=== PATIENT | male | born 1960 | race Caucasian/White ===

== ENCOUNTER 2018-03-12 23:16 | Inpatient (IN) | payer BC ==
[2018-03-13 00:22] LABS: ABS Basophils 0 10^3/ul (0-0.2); ABS Eosinophils 0.1 10^3/ul (0-0.6); ABS Lymphocytes 0.9 10^3/ul (1.0-4.8); ABS Monocytes 0.5 10^3/ul (0-0.8); ABS Neutrophils 7.8 10^3/ul (1.5-7.7); ABS Nucleated RBC 0 10^3/ul; Eosinophil % 1.4 % (0-6); Hematocrit 42 % (42-52); Hemoglobin 14.4 g/dl (14.0-18.0); Lymphocyte % 9.4 % (25-47); Mean Corpuscular HGB Conc 35 g/dl (31-36); Mean Corpuscular Hemoglobin 31 pg (27-31); Mean Corpuscular Volume 89 fL (80-94); Nucleated Red Blood Cells % 0; Platelet Count 191 10^3/ul (150-450); Red Blood Count 4.69 10^6/ul (4.00-5.40); Red Cell Distribution Width 13 % (10.5-15); White Blood Count 9.3 10^3/ul (3.5-10.8)
[2018-03-13 00:35] LABS: EGFR Non-African American 99.6 (>60)
[2018-03-13] MEDS ORDERED: Dexamethasone IV* 4 MG/ML 5 ML VIAL (20 MG) IVPB ONE (00:36)
[2018-03-13] MEDS ORDERED: Ondansetron INJ* 2 MG/ML VIAL IV PRN ×2 (01:22→03:23)
[2018-03-13] MEDS ORDERED: Morphine VIAL* 10 MG/ML 1 ML VIAL IV ONE (01:22)
[2018-03-13] MEDS ORDERED: Ondansetron INJ* 2 MG/ML VIAL ONE (01:41)
[2018-03-13] MEDS ORDERED: levETIRAcetam IV* 500 MG in NS 0.9% 100 ML* 100 ML IVPB ONE (01:53)
--- NOTE | 2018-03-13 01:55 | ED ---
Headache - HPI Summary HPI Summary: Patient complains of cognitive decline including difficulty focusing and decreased memory 1 week with constant diffused generalized headache, nausea 2 days. No relief with Tylenol or aspirin. No prior history of headache. Denies focal deficits, vision change, V/D, trauma neck stiffness, fever, cough, sore throat, CP, SOB, abdominal pain, change in urine or BM. Medical history is none. No anti-coag. - History Of Current Complaint Chief Complaint: EDHeadache Stated Complaint: HEADACHE Time Seen by Provider: 03/12/18 23:40 Hx Obtained From: Patient, Family/Laborer [facility] Onset/Duration: Gradual Onset Initially Headache Was: Severe Currently Pain Is: Severe Timing: Constant Character: Sharp Location of Headache: Diffuse Aggravating Factor: Bright Lights Allevating Factors: Nothing Associated Signs And Symptoms: Negative - Risk Factors SAH Risk Factors: Negative Meningitis Risk Factors: Negative SDH Risk Factors: Male - Allergies/Home Medications Allergies/Adverse Reactions: Allergies Allergy/AdvReac Type Severity Reaction Status Date / Time No Known Allergies Allergy Verified 03/12/18 23:27 PMH/Surg Hx/FS Hx/Imm Hx Endocrine/Hematology History: Denies: Hx Anticoagulant Therapy, Hx Diabetes Cardiovascular History: Denies: Hx Cardiac Arrest, Hx Hypertension History: Denies: Hx Dialysis, Hx Kidney Stones Neurological History: Denies: Hx CVA Infectious Disease History: No Infectious Disease History: Denies: Traveled Outside the [place] in Last 30 Days - Family History Known Family History: Positive: Hypertension, Other - HLD - Social History Alcohol Use: None Substance Use Type: Reports: None Smoking Status (MU): Unknown if Ever Smoked Review of Systems Constitutional: Negative Eyes: Negative ENT: Negative Cardiovascular: Negative Respiratory: Negative Gastrointestinal: Negative Genitourinary: Negative Musculoskeletal: Negative Skin: Negative Positive: Headache Psychological: Normal All Other Systems Reviewed And Are Negative: Yes Physical Exam - Summary Physical Exam Summary: Neuro exam normal. Patient alert and oriented responding coherently and appropriately. Holding his head in his arms Triage Information Reviewed: Yes Vital Signs On Initial Exam: Initial Vitals Temp Pulse Resp BP Pulse Ox 97.4 F 70 16 154/87 99 03/12/18 23:25 03/12/18 23:25 03/12/18 23:25 03/12/18 23:25 03/12/18 23:25 Vital Signs Reviewed: Yes Appearance: Positive: Well-Appearing Skin: Positive: Warm Head/Face: Positive: Normal Head/Face Inspection Eyes: Positive: Normal Neck: Positive: Supple Respiratory/Lung Sounds: Positive: Clear to Auscultation Cardiovascular: Positive: Normal Abdomen Description: Positive: Nontender Musculoskeletal: Positive: Normal Neurological: Positive: Normal Psychiatric: Positive: Normal AVPU Assessment: Alert - Radha Coma Scale Best Eye Response: 4 - Spontaneous Best Motor Response: 6 - Obeys Commands Best Verbal Response: 5 - Oriented Coma Scale Total: 15 Diagnostics - Vital Signs Vital Signs Temp Pulse Resp BP Pulse Ox 03/13/18 01:43 16 03/12/18 23:25 97.4 F 70 16 154/87 99 - Laboratory Lab Results: Lab Results 03/13/18 03/13/18 Range/Units 00:13 00:13 WBC 9.3 (3.5-10.8) 10^3/ul RBC 4.69 (4.00-5.40) 10^6/ul Hgb 14.4 (14.0-18.0) g/dl Hct 42 (42-52) % MCV 89 (80-94) fL MCH 31 (27-31) pg MCHC 35 (31-36) g/dl RDW 13 (10.5-15) % Plt Count 191 (150-450) 10^3/ul MPV 7.0 L (7.4-10.4) um3 Neut % (Auto) 83.7 H (38-83) % Lymph % (Auto) 9.4 L (25-47) % Barnwell % (Auto) 5.2 (0-7) % Eos % (Auto) 1.4 (0-6) % Baso % (Auto) 0.3 (0-2) % Absolute Neuts (auto) 7.8 H (1.5-7.7) 10^3/ul Absolute Lymphs (auto) 0.9 L (1.0-4.8) 10^3/ul Absolute Monos (auto) 0.5 (0-0.8) 10^3/ul Absolute Eos (auto) 0.1 (0-0.6) 10^3/ul Absolute Basos (auto) 0 (0-0.2) 10^3/ul Absolute Nucleated RBC 0 10^3/ul Nucleated RBC % 0 Sodium 141 (135-145) mmol/L Potassium 4.0 (3.5-5.0) mmol/L Chloride 109 (101-111) mmol/L Carbon Dioxide 27 (22-32) mmol/L Anion Gap 5 (2-11) mmol/L BUN 11 (6-24) mg/dL Creatinine 0.80 (0.67-1.17) mg/dL Est GFR ( Amer) 120.6 (>60) Est GFR (Non-Af Amer) 99.6 (>60) BUN/Creatinine Ratio 13.8 (8-20) Glucose 122 H (70-100) mg/dL Calcium 9.2 (8.6-10.3) mg/dL Total Bilirubin 1.10 H (0.2-1.0) mg/dL AST 14 (13-39) U/L ALT 14 (7-52) U/L Alkaline Phosphatase 48 (34-104) U/L C-Reactive Protein < 1.00 (<8.01) mg/L Total Protein 6.2 L (6.4-8.9) g/dL Albumin 4.2 (3.2-5.2) g/dL Globulin 2.0 (2-4) g/dL Albumin/Globulin Ratio 2.1 (1-3) Result Diagrams: 03/13/18 00:13 03/13/18 00:13 Lab Statement: Any lab studies that have been ordered have been reviewed, and results considered in the medical decision making process. Headache Course/Dx - Course Course Of Treatment: Patient complains of cognitive decline including difficulty focusing and decreased memory 1 week with constant diffused generalized headache, nausea 2 days. No relief with Tylenol or aspirin. No prior history of headache. Denies focal deficits, vision change, V/D, trauma neck stiffness, fever, cough, sore throat, CP, SOB, abdominal pain, change in urine or BM. Medical history is none. No anti-coag. Neuro exam and stroke screen normal. Patient alert and oriented responding coherently and appropriately. Holding his head in his arms. Vital signs within normal limits. CBC and CMP unremarkable. Head CT positive for right temporal abnormality with possible hemorrhagic infarct versus tumor. Discussed patient with Dr. Ward neurology, and Dr. Jay neurosurgery. Dr. Jay recommended [facility] for seizure prophylaxis, admission to ICU, observation, MRI with and without contrast, CT chest abdomen pelvis workup for possible cancer. - Diagnoses Provider Diagnoses: Headache, Abnormal CT of brain, Acute cognitive decline Discharge - Sign-Out/Discharge Documenting (check all that apply): Patient Departure - Discharge Plan Condition: Fair Disposition: ADMITTED TO [facility] Referrals: Clair Pederson MD [Primary Care Provider] - - Billing Disposition and Condition Condition: FAIR Disposition: Admitted to [facility]
[2018-03-13 02:28] LABS: INR 0.95 (0.77-1.02)
[2018-03-13] MEDS: levETIRAcetam 500 MG IVPREMIX* 500 MG/100 ML BAG IV SCH ×2 (02:32→15:08)
[2018-03-13] MEDS ORDERED: Dexamethasone IV* 4 MG in NS 0.9% 50 ML* 50 ML IVPB SCH (03:00)
[2018-03-13] MEDS ORDERED: Dexamethasone IV* 4 MG/ML 1 ML (4 MG) IV SLOW PU SCH (03:00)
[2018-03-13] MEDS: Dexamethasone IV* 4 MG/ML 1 ML (4 MG) IV SLOW PU SCH ×3 (07:46→20:27)
[2018-03-13] MEDS: Morphine INJ* 2 MG/ML 1 ML SYRINGE (TWO MG - NEW SYRINGE VERSION) IV PRN ×3 (07:58→20:28)
--- NOTE | 2018-03-13 08:45 | RAD ---
INDICATION: Headache, cognitive decline. COMPARISON: There are no prior studies available for comparison. TECHNIQUE: Contiguous axial sections of the brain were obtained from the skull base to the vertex without contrast. FINDINGS: There is a large heterogeneous area present involving the majority of the right temporal lobe which is mainly decreased in attenuation with smaller curvilinear peripheral areas of increased density likely representing areas of hemorrhage less likely calcification. The whole area measures 7.3 x 1.5 cm in size and is suspicious for a mass less likely an infarct. There is effacement of the adjacent sulci and sylvian fissure. There is significant mass effect with compression of the right lateral ventricle and 6 mm of subfalcine herniation toward the left side. No significant focal osseous abnormality is seen. The visualized portion of the paranasal sinuses and mastoid air cells appear clear. IMPRESSION: LARGE HETEROGENEOUS MASS IN THE RIGHT TEMPORAL LOBE WITH PERIPHERAL AREAS OF INCREASED DENSITY LIKELY REPRESENTING HEMORRHAGE LESS LIKELY CALCIFICATION WITH SIGNIFICANT MASS EFFECT SUSPICIOUS FOR A PRIMARY BRAIN MALIGNANCY LESS LIKELY AN INFARCT. RECOMMEND AN MRI OF THE BRAIN WITHOUT AND WITH CONTRAST FOR FURTHER EVALUATION.
--- NOTE | 2018-03-13 09:01 | PN ---
Hospitalist Progress Note Date of Service: 03/13/18 I have seen and examined Mr. Garcia and assume his care today. He is feeling a little better after having received Morphine for headache. He met with Dr. Hurtado this morning and understands the possibilities of tumor vs. infarct on the CT scan. MRI to be done today; if tumor we will check CT C/A/P. Vitals okay, labs okay. Will await MRI findings.
[2018-03-13] MEDS ORDERED: Gadoteridol* (CONTRAST) 279.3 MG/ML 10 ML IV ONE (10:04)
--- NOTE | 2018-03-13 10:59 | RAD ---
INDICATION: Right temporal lobe abnormality on CT. COMPARISON: Comparison is made with a prior CT of the brain from March 13, 2018. TECHNIQUE: Sagittal T1, axial T1, T2, susceptibility, FLAIR and diffusion-weighted images were obtained. In addition, axial, sagittal and coronal T1-weighted images were obtained following intravenous injection of 17 ml of ProHance contrast. FINDINGS: There is a large mass centered in the anterior right temporal lobe measuring 4.0 x 4.1 x 2.8 cm.. This is mainly peripheral ringlike enhancement with some less prominent linear and patchy areas of enhancement. There also appears to be small areas of hemorrhage in the anterior and posterior inferior aspect of the mass which correlate with the areas of increased density noted on the prior CT study. There is surrounding vasogenic edema which causes mass effect with effacement of the surrounding sulci and sylvian fissure. There is compression of the right lateral ventricle and approximately 6 mm of subfalcine herniation. No other areas of enhancement are seen. There are small nonspecific areas of increased signal intensity present in the subcortical and periventricular white matter likely secondary to mild chronic small vessel schema changes less likely demyelinating disease. The paranasal sinuses and mastoid air cells appear clear. The results of this exam were discussed with the referring clinician. IMPRESSION: 1. LARGE MASS IN THE RIGHT TEMPORAL LOBE WITH SMALL AREAS OF HEMORRHAGE AND SIGNIFICANT MASS EFFECT DESCRIBED MOST CONSISTENT WITH A PRIMARY MUSIC JOURNALIST TUMOR SUCH A GLIOBLASTOMA MULTIFORME. 2. NONSPECIFIC FOCAL AREAS OF INCREASED SIGNAL INTENSITY IN THE SUBCORTICAL AND PERIVENTRICULAR WHITE MATTER ON T2-WEIGHTED IMAGES SUGGESTIVE OF CHRONIC SMALL VESSEL ISCHEMIC CHANGES OR LESS LIKELY DEMYELINATING DISEASE.
--- NOTE | 2018-03-13 13:24 | HP ---
CC: Clair Pederson MD, MARITA Valladares HISTORY AND PHYSICAL: DATE OF ADMISSION: 03/13/18 CHIEF COMPLAINT: Headache. HISTORY OF PRESENT ILLNESS: Mr. Garcia is a 57-year-old man who noted some prominent changes in his p erception, memory, organization, in the last week prior to admission. For instance, he reports that he normally can multitask and now he can only do one thing at a time. He has had some significant me yulia lapses. He also had an auditory hallucination yesterday when he heard a person talking and it s ounded very different than the normal voice and he knew it could not be real. He then developed a he adache 2 days ago that has been constant throughout his whole head associated with nausea, with no ph otophobia. The headache is worse with exertion or standing up. He came to the emergency department tonight because of the headache. PAST MEDICAL HISTORY: Nephrolithiasis. PAST SURGICAL HISTORY: None. MEDICATIONS: None. ALLERGIES: None. FAMILY HISTORY: Notable for father having had heart disease, mother has hypertension. His sister naranjo d a stroke. He has a brother who in a motor cycle accident. 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 He does not smoke, he d rinks alcohol about 2 drinks per day, no recreational drugs. REVIEW OF SYSTEMS: The patient denies any fevers, weight loss, anorexia. The patient denies any viji st pain or palpitations. The patient denies any shortness of breath or cough. Remainder of the 14-p oint review of systems is negative other than mentioned in the HPI. PHYSICAL EXAMINATION GENERAL: He is alert in no acute distress. VITAL SIGNS: Temperature is 36.3, pulse 70, respirations 16, blood pressure is 164/87, O2 sats 99%. HEENT: Head is normocephalic and atraumatic. Sclerae anicteric. Pupils are equal, round, and react barb to light and accommodation. Oropharynx is moist. No lesions. NECK: No JVD, no carotid bruits, no thyromegaly. LUNGS: Clear to auscultation and percussion bilaterally. HEART: Regular rate and rhythm, no murmurs, rubs or gallops. ABDOMEN: Soft, nontender, positive bowel sounds. No hepatosplenomegaly. EXTREMITIES: No peripheral edema. Dorsalis pedis pulses 2+ bilaterally. NEUROLOGIC: Cranial nerves II through XII are intact. Motor strength is 5/5 throughout. Deep tendo n reflexes are symmetric. There is no pronator drift. Qdobga-vqew-pechln shows no dysmetria. The pa vishal has no significant verbal deficits. He seems somewhat disinhibited but his says that this is his baseline. IMAGING AND LABORATORY DATA: Head CT performed in the ER shows extensive area of abnormality in the right temporal lobe with some small areas of hemorrhage which may be a larger infarct with hemorrhag ic transformation versus a brain neoplasm. ASSESSMENT AND PLAN: The patient is a 57-year-old man presenting with right temporal abnormality and cognitive changes. There is a concern of brain neoplasm versus stroke. The clinical syndrome is ce rtainly more likely a brain tumor of some sort. Patient will be admitted to the ICU and placed on Ke ppra to prevent seizures. He has been started on Decadron in the ER, this will be continued to reduc e edema and inflammation in the brain and prevent headaches and seizures. The patient will have cons ultation with Dr. Ward who is made aware of the patient by the emergency room doctor, Dr. Cabrera. Code status is full. We will give sequential compression devices to prevent DVT as he cannot have any heparin type medications with his hemorrhagic stroke or hemorrhagic complication of brain tumor. [id number]/[id number] #: [id number]
[2018-03-13] MEDS ORDERED: Iohexol 300* (CONTRAST) 10 ML SDV IV ONE (13:35)
--- NOTE | 2018-03-13 14:32 | RAD ---
INDICATION: Brain tumor, metastatic workup. COMPARISON: Correlation is made with a prior CT of the abdomen and pelvis from June 10, 2017. TECHNIQUE: A CT scan of the chest, abdomen and pelvis was performed with intravenous and with oral contrast following intravenous injection of 100 ml of Omnipaque 300 nonionic contrast. Contiguous axial sections were obtained from the lung apices through the symphysis pubis. Images were reconstructed in the coronal and sagittal planes. FINDINGS: The lungs are clear. No pleural effusion is present. No significant enlarged mediastinal or hilar lymph nodes are seen. The heart is normal in size. There are coronary artery calcium calcifications present. No pericardial effusion is present. The thoracic aorta is normal in caliber. There is homogeneous contrast opacification. The liver and spleen are normal in size without significant focal abnormality. No calcified gallstones are seen. The pancreas appears to be within normal limits in size. The kidneys and adrenal glands are normal in size. There is no evidence for hydronephrosis. There are several small left renal cysts. No urinary bladder wall thickening is present. The prostate gland is enlarged with internal coarse calcifications. The gland measures 5.5 cm in transverse dimension. The aorta is normal in caliber and there is mild calcific plaque present. No significant enlarged retroperitoneal lymph nodes are seen. The stomach, small and large bowel appear nondistended. There is thickening of the wall of the body of the stomach. There is mild sigmoid diverticulosis without evidence for diverticulitis. There is a small periumbilical hernia containing fat. No free intraperitoneal air or fluid is seen. No significant focal osseous abnormality is seen. IMPRESSION: 1. NORMAL CT OF THE CHEST. 2. NONSPECIFIC THICKENING OF THE WALL OF THE BODY OF THE STOMACH POSSIBLY DUE TO INCOMPLETE DISTENTION ALTHOUGH A MASS CANNOT BE EXCLUDED. CONSIDER ENDOSCOPY FOR FURTHER EVALUATION.
--- NOTE | 2018-03-13 15:50 | CONS ---
CONSULTATION REPORT: DATE OF CONSULTATION: 03/13/2018. HISTORY OF PRESENT ILLNESS: The patient is a very pleasant 57-year-old right handed gentleman without significant past medical history who presented to the emergency room with a history of 1 week of decreased cognitive function including difficulty concentrating, processing information and difficulty with memory. 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 The patient denies any vision or speech problems, denies any seizures. He started having headache in the last 2 days with some episodes of nausea and vomiting. After presentation to the emergency room, we are requested to see the patient by emergency room team because of CT scan findings consistent with a large right temporal lesion with possible hemorrhagic foci. The patient was admitted into the ICU with hospitalist team and patient was seen in the intensive care unit. The patient denies any weakness, numbness, or tingling of the extremities. He ambulates without difficulty. He denies any urinary urgency or incontinence. The patient is working at a local [employer] and is highly involved in [employer] as he reports. He is , lives with his and he has 3 sons. PAST MEDICAL HISTORY: The patient denies any significant medical problems. PAST SURGICAL HISTORY: The patient had facial surgery after an accident at a young age. MEDICATIONS: The patient was not on any medication at home as he reports. ALLERGIES: No known drug allergies. SOCIAL HISTORY: Tobacco: Negative. Alcohol: 1 to 2 drinks per day. Recreational drug use: Negative. PHYSICAL EXAMINATION: The patient is not in acute distress. He has no tenderness to palpation of cervical, thoracic or lumbar spine. He has full range of motion of cervical spine. He is awake, alert, oriented x3. His pupils are equal and reactive. Cranial nerves II through XII are grossly intact. Motor 5/5 in all extremities. No pronator drift. Sensory grossly intact to light touch. Deep tendon reflexes +1 bilaterally. No clonus, no Babinski. Alli's negative. Straight leg test negative in the sitting position. No dysmetria. DIAGNOSTIC STUDIES: The patient had a CT scan of the brain revealing large right temporal hypodense lesion with possible hemorrhagic foci versus calcifications. There is a significant mass effect with right to left midline shift and compression of the right ventricular system. The basal cisterns are open. ASSESSMENT: The patient is a very pleasant 57-year-old right hand gentleman with altered mental status with significant findings consistent with a right large temporal lesion. PLAN: The patient at this point has been admitted to ICU. He has been started on seizure prophylaxis and steroids. He is scheduled to have an MRI of the brain. May consider CT scan of the chest, abdomen and pelvis. We discussed in extent with the patient regarding patient's imaging and possible prognosis and treatment options including brain biopsy and the need for resection of the lesion. The patient understands and would prefer to have his care at [facility]. We will be happy to make arrangements for his transfer after MRI is done. Thank you for allowing us to participate in the care of this patient. Please do not hesitate to contact our office in case you have any further questions or concerns regarding the care of this patient. [id number]/[facility] #: [id number] MEHRAN
--- NOTE | 2018-03-13 23:45 | PN ---
Progress Note - Progress Note Date of Service: 03/13/18 Note: Patient was seen earlier today, after MRI of brain. MRI reveals multifocal ring enchancing lesion rt temporal lobe with surrounding edema. Possible primary SU[employer] tumor with GBM a possible diagnosis. Per patients wishes contacted Dr Jackson in [facility] who recommended transfer of patient to his office or [facility] on Wednesday for possible surgical intervention on . Discussed in extend with patient and his . They are in agreement with plan and they understand that he need emergency surgical intervention in case his clinical condition deteriorates, especially if he develops significant edema or hemorrhage. They are in agreement with plan. Also they would like to consider transfer to [place] for treatment at [facility]. Will follow patient's wishes. Continue metastatic work up with CT C/A/P. V. MD Ozzy
[2018-03-14] MEDS: Morphine INJ* 2 MG/ML 1 ML SYRINGE (TWO MG - NEW SYRINGE VERSION) IV PRN ×3 (02:27→20:34)
[2018-03-14] MEDS: Dexamethasone IV* 4 MG/ML 1 ML (4 MG) IV SLOW PU SCH ×4 (05:04→19:32)
[2018-03-14] MEDS: levETIRAcetam 500 MG IVPREMIX* 500 MG/100 ML BAG IV SCH ×2 (05:04→15:39)
--- NOTE | 2018-03-14 09:28 | RAD ---
HISTORY: tumor COMPARISONS: March 13, 2018, MRI dated March 13, 2018 TECHNIQUE: Multiple contiguous axial CT scans were obtained of the head without intravenous contrast. FINDINGS: HEMORRHAGE/INFARCT: As noted on the previous CT and MRI, there is high attenuation material within the right temporal mass which likely reflects hemorrhagic components there are calcifications within the differential. This is stable from the previous examination. Elsewhere, there is no hemorrhage or acute infarct. MASSES/SHIFT: As noted on the previous examination, there is a right temporal lobe mass with associated vasogenic edema and high attenuation component suggestive of calcification versus hemorrhagic components. This is stable in size and appearance compared to March 13, 2018. There is stable subfalcine shift to the left of approximately 0.6 cm. The basal cisterns are preserved. EXTRA-AXIAL SPACES: There are no extra-axial fluid collections. SULCI AND VENTRICLES: There is stable sulcal effacement on the right. On the right lateral ventricle with effacement of the frontal horn and temporal horn. CEREBRUM: As noted above, there is an approximately 7 x 5 cm mass of the right temporal lobe with associated vasogenic edema and high attenuation components that may reflect mineralization versus hemorrhage. This is stable compared to the previous examination. BRAINSTEM: There are no focal parenchymal abnormalities. CEREBELLUM: There are no focal parenchymal abnormalities. VESSELS: The vessels are grossly normal. PARANASAL SINUSES: The paranasal sinuses are clear. ORBITS: The orbits are unremarkable. BONES AND SOFT TISSUE: No bone or soft tissue abnormalities are noted. OTHER: None IMPRESSION: STABLE RIGHT TEMPORAL LOBE MASS WITH ASSOCIATED VASOGENIC EDEMA AND SUBFALCINE SHIFT TO THE LEFT.
--- NOTE | 2018-03-14 10:50 | PN ---
Subjective Date of Service: 03/14/18 Interval History: Pt c/o intermittent headache in r temporal area, no motor deficit Objective Active Medications: Dexamethasone Sodium Phosphate (Decadron Iv*) 4 mg IV SLOW PU 0130,0730,1330, 1930 [facility] Last Admin: 03/14/18 08:11 Dose: 4 mg Levetiracetam (Keppra Iv Premix*) 500 mg in 100 mls @ 400 mls/hr IV Q12H [facility] Last Admin: 03/14/18 05:04 Dose: 400 mls/hr Morphine Sulfate (Morphine Inj ((Syringe))*) 2 mg IV Q4H PRN PRN Reason: PAIN Last Admin: 03/14/18 08:11 Dose: 2 mg Ondansetron HCl (Zofran Inj*) 4 mg IV ONCE PRN PRN Reason: NAUSEA Last Admin: 03/13/18 01:43 Dose: 4 mg Ondansetron HCl (Zofran Inj*) 4 mg IV Q6H PRN PRN Reason: NAUSEA Vital Signs - 8 hr 03/14/18 03/14/18 03/14/18 03:00 04:00 05:00 Temperature Pulse Rate 53 49 48 Respiratory 14 14 19 Rate Blood Pressure 128/73 112/49 107/60 (mmHg) O2 Sat by Pulse 97 97 98 Oximetry 03/14/18 03/14/18 03/14/18 05:43 06:00 06:01 Temperature Pulse Rate 53 54 Respiratory 16 14 16 Rate Blood Pressure 126/76 (mmHg) O2 Sat by Pulse 96 97 Oximetry 03/14/18 03/14/18 03/14/18 07:00 07:38 08:00 Temperature 99.3 F Pulse Rate 55 60 Respiratory 20 18 Rate Blood Pressure 126/72 132/79 (mmHg) O2 Sat by Pulse 97 98 Oximetry 03/14/18 03/14/18 03/14/18 08:11 09:00 09:01 Temperature Pulse Rate 61 66 Respiratory 18 19 21 Rate Blood Pressure 136/81 (mmHg) O2 Sat by Pulse 98 99 Oximetry 03/14/18 10:00 Temperature Pulse Rate 75 Respiratory 20 Rate Blood Pressure 127/76 (mmHg) O2 Sat by Pulse 98 Oximetry Oxygen Devices in Use Now: None Appearance: 57 yo M in nAD, aAOx3 Eyes: No Scleral Icterus, PERRLA Ears/Nose/Mouth/Throat: NL Teeth, Lips, Gums, Mucous Membranes Moist Neck: NL Appearance and Movements; NL JVP, Trachea Midline Respiratory: Symmetrical Chest Expansion and Respiratory Effort, Clear to Auscultation Cardiovascular: NL Sounds; No Murmurs; No JVD, RRR, No Edema Abdominal: NL Sounds; No Tenderness; No Distention Lymphatic: No Cervical Adenopathy Extremities: No Edema, No Clubbing, Cyanosis Skin: No Rash or Ulcers, No Nodules or Sclerosis Neurological: Alert and Oriented x 3, NL Muscle Strength and Tone, - - mild facial asymetry with flattening of left naso-labial fold, motro5/5 b/l, gait-WNL Result Diagrams: 03/13/18 00:13 03/13/18 00:13 Additional Lab and Data: Lab Results 03/13/18 03/13/18 Range/Units 00:13 00:13 WBC 9.3 (3.5-10.8) 10^3/ul RBC 4.69 (4.00-5.40) 10^6/ul Hgb 14.4 (14.0-18.0) g/dl Hct 42 (42-52) % MCV 89 (80-94) fL MCH 31 (27-31) pg MCHC 35 (31-36) g/dl RDW 13 (10.5-15) % Plt Count 191 (150-450) 10^3/ul MPV 7.0 L (7.4-10.4) um3 Neut % (Auto) 83.7 H (38-83) % Lymph % (Auto) 9.4 L (25-47) % [place] % (Auto) 5.2 (0-7) % Eos % (Auto) 1.4 (0-6) % Baso % (Auto) 0.3 (0-2) % Absolute Neuts (auto) 7.8 H (1.5-7.7) 10^3/ul Absolute Lymphs (auto) 0.9 L (1.0-4.8) 10^3/ul Absolute Monos (auto) 0.5 (0-0.8) 10^3/ul Absolute Eos (auto) 0.1 (0-0.6) 10^3/ul Absolute Basos (auto) 0 (0-0.2) 10^3/ul Absolute Nucleated RBC 0 10^3/ul Nucleated RBC % 0 Sodium 141 (135-145) mmol/L Potassium 4.0 (3.5-5.0) mmol/L Chloride 109 (101-111) mmol/L Carbon Dioxide 27 (22-32) mmol/L Anion Gap 5 (2-11) mmol/L BUN 11 (6-24) mg/dL Creatinine 0.80 (0.67-1.17) mg/dL Est GFR ( Amer) 120.6 (>60) Est GFR (Non-Af Amer) 99.6 (>60) BUN/Creatinine Ratio 13.8 (8-20) Glucose 122 H (70-100) mg/dL Calcium 9.2 (8.6-10.3) mg/dL Total Bilirubin 1.10 H (0.2-1.0) mg/dL AST 14 (13-39) U/L ALT 14 (7-52) U/L Alkaline Phosphatase 48 (34-104) U/L C-Reactive Protein < 1.00 (<8.01) mg/L Total Protein 6.2 L (6.4-8.9) g/dL Albumin 4.2 (3.2-5.2) g/dL Globulin 2.0 (2-4) g/dL Albumin/Globulin Ratio 2.1 (1-3) Microbiology and Other Data: Microbiology 03/13/18 04:20 Nasal Screen MRSA (PCR) - Final Nasal Mrsa Not Detected Assess/Plan/Problems-Billing Assessment: 57 yo M with no PMHx presents with headache and problems with executive function , 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 planed for surgery in [place] on Wed, to be transferred on . for now cont monitoring in ICU, d/c DR. Ozzy Franco for seziure precautions (2) DVT prophylaxis Comment: ambulation , low risk Status and Disposition: inpatient
[2018-03-14] MEDS ORDERED: Docusate CAP* 100 MG PO PRN (12:27)
[2018-03-14] MEDS ORDERED: Docusate CAP* 100 MG PO ONE (12:27)
[2018-03-14] MEDS ORDERED: Magnesium Hydroxide LIQ* 30 ML UDC PO PRN (12:27)
[2018-03-15] MEDS: levETIRAcetam 500 MG IVPREMIX* 500 MG/100 ML BAG IV SCH ×2 (02:58→14:01)
[2018-03-15] MEDS: Dexamethasone IV* 4 MG/ML 1 ML (4 MG) IV SLOW PU SCH ×3 (03:00→13:59)
[2018-03-15] MEDS: Morphine INJ* 2 MG/ML 1 ML SYRINGE (TWO MG - NEW SYRINGE VERSION) IV PRN (08:15)
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
[2018-03-15 15:16] VITALS: BP 124/70
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
== END 2018-03-15 14:41 | disposition left against medical advice (07) | DRG 41 ==
LOC: ED 23:16 → ICU 03-13 02:03
PROVIDERS: ADMIT Internal Medicine; ATTEND Internal Medicine
DX: C71.2 Malignant neoplasm of temporal lobe (principal); I61.1 Nontraumatic intracerebral hemorrhage in hemisphere, cortical; G93.5 Compression of brain; G93.6 Cerebral edema; R41.840 Attention and concentration deficit; Z82.49 Family history of ischemic heart disease and other diseases of the circulatory system; Z82.3 Family history of stroke
CPT/HCPCS: 36415; 70450; 70553; 71260; 74177; 80053; 85025; 85610; 85730; 86140; 86617; 86618; 87641; 93005; 99284; A9270-GY; A9579; J1100; J2270; J2405; Q9967

== ENCOUNTER 2018-05-11 09:52 | Emergency (ER) | payer BC ==
[2018-05-11] MEDS ORDERED: NS 0.9% 1000 ML* 1,000 ML IV ONE (10:13)
[2018-05-11] MEDS ORDERED: Ondansetron INJ* 2 MG/ML VIAL IV ONE (10:13)
--- NOTE | 2018-05-11 10:18 | ED ---
Abdominal Pain/Male - HPI Summary HPI Summary: This pt is a 58 y/o male presenting to [facility] from radiation clinic c/o abd pain and nausea. Pt started radiation and oral chemotherapy for glioblastoma 5 weeks ago. He describes abd pain mostly in the upper abdomen area, constant burning pain "like heart burn," that does not radiate. Additionally states nausea has worsened, notes "I have nausea all the time but now nothing smells good, nothing looks good, everything just causes nausea." He also reports headache, rating it 2 or 3 out of 10, runny nose, sinus pain. Denies fever, chills, cough , chest pain, SOB. He has chronic constipation for which he takes laxative. Pt reports that for the last 2 days he has had regular bowel movements. Pt is followed up by Dr. Mandujano and Dr. Aguilera at [facility]. He has had tumor removal in March by Dr. Jeffrey in [place]. - History of Current Complaint Chief Complaint: EDGeneral Stated Complaint: LATHARGIC Time Seen by Provider: 05/11/18 10:07 Hx Obtained From: Patient Onset/Duration: Lasting Days, Still Present Timing: Lasting Days Severity Currently: Moderate Pain Intensity: 4 Pain Scale Used: 0-10 Numeric Location: Other - upper abdomen Radiates: No Aggravating Factor(s): Nothing Alleviating Factor(s): Nothing Associated Signs And Symptoms: Positive: Nausea, Other - POS: runny nose, sinus pain, headache. NEG: fever, chills, cough, SOB. Negative: Fever, Chest Pain, Constipation - Allergies/Home Medications Allergies/Adverse Reactions: Allergies Allergy/AdvReac Type Severity Reaction Status Date / Time No Known Allergies Allergy Verified 05/11/18 09:57 PMH/Surg Hx/FS Hx/Imm Hx Endocrine/Hematology History: Denies: Hx Anticoagulant Therapy, Hx Diabetes Cardiovascular History: Denies: Hx Cardiac Arrest, Hx Hypertension, Hx Pacemaker/ICD History: Denies: Hx Dialysis, Hx Kidney Stones Sensory History: Reports: Hx Contacts or Glasses Denies: Hx Hearing Aid Opthamlomology History: Reports: Hx Contacts or Glasses Neurological History: Denies: Hx CVA Psychiatric History: Denies: Hx Panic Disorder - Cancer History Cancer Type, Location and Year: Glioblastoma - Surgical History Surgery Procedure, Year, and Place: FACIAL SURGERY FOR FACIAL FX, TONSILS, LESIONS REMOVED FROM SKIN ON SKULL Infectious Disease History: No Infectious Disease History: Denies: Traveled Outside the [place] in Last 30 Days - Family History Known Family History: Positive: Hypertension, Other - HLD - Social History Alcohol Use: Occasionally Substance Use Type: Reports: None Smoking Status (MU): Never Smoked Tobacco Have You Smoked in the Last Year: No Review of Systems Negative: Fever, Chills Positive: Nasal Discharge, Other - sinus tenderness Negative: Chest Pain Negative: Shortness Of Breath, Cough Positive: Abdominal Pain, Nausea Positive: Headache All Other Systems Reviewed And Are Negative: Yes Physical Exam - Summary Physical Exam Summary: VITAL SIGNS: Reviewed. GENERAL: Patient is a well-developed and nourished male who is lying comfortable in the stretcher. Patient is not in any acute respiratory distress. HEAD AND FACE: No signs of trauma. No ecchymosis, hematomas or skull depressions. No sinus tenderness. EYES: PERRLA, EOMI x 2, No injected conjunctiva, no nystagmus. Right eye with slight decreased vision. EARS: Hearing grossly intact. Ear canals and tympanic membranes are within normal limits. MOUTH: Oropharynx within normal limits. Dry oral mucosa. NECK: Supple, trachea is midline, no adenopathy, no JVD, no carotid bruit, no c- spine tenderness, neck with full ROM. CHEST: Symmetric, no tenderness at palpation LUNGS: Clear to auscultation bilaterally. No wheezing or crackles. CVS: Regular rate and rhythm, S1 and S2 present, no murmurs or gallops appreciated. ABDOMEN: Soft, diffuse tenderness in the abdomen with guarding. No signs of distention. No rebound and no masses palpated. Bowel sounds are normal. EXTREMITIES: FROM in all major joints, no edema, no cyanosis or clubbing. NEURO: Alert and oriented x 3. No acute neurological deficits. Speech is normal and follows commands. SKIN: Dry and warm. Dry skin. Triage Information Reviewed: Yes Vital Signs On Initial Exam: Initial Vitals Temp Pulse Resp BP Pulse Ox 97.9 F 68 18 112/87 98 05/11/18 09:53 05/11/18 09:53 05/11/18 09:53 05/11/18 09:53 05/11/18 09:53 Vital Signs Reviewed: Yes Diagnostics - Vital Signs Vital Signs Temp Pulse Resp BP Pulse Ox 05/11/18 09:53 97.9 F 68 18 112/87 98 - Laboratory Result Diagrams: 05/11/18 10:27 05/11/18 10:27 Lab Statement: Any lab studies that have been ordered have been reviewed, and results considered in the medical decision making process. - CT Abdomen/Pelvis CT CT Interpretation: No Acute Changes - IMPRESSION: 1. No acute abdominal pelvic pathologic gastrointestinal or other pathologic process evident. 2. No CT evidence for abdominal pelvic metastatic disease. Dr. Mondragon has reviewed this report. CT Interpretation Completed By: Radiologist Brain CT CT Interpretation: No Acute Changes - IMPRESSION: Stable treatment related changes. No acute intracranial pathology. Dr. Mondragon has reviewed this report. CT Interpretation Completed By: Radiologist - EKG 10:29 Cardiac Rate: NL - at 60 bpm EKG Rhythm: Sinus Rhythm EKG Interpretation: No ST elevations. EKG Comparison: No Significant Change - similar to prior on 03/13/18. Re-Evaluation - Re-Evaluation First Eval Re-Evaluation Time: 14:26 Change: Improved Comment: I discussed the lab and CT results with the pt. Pt reports feeling better after the GI cocktail and Protonix. He will be discharged home. Abdominal Pain Fem Course/Dx - Course Assessment/Plan: This pt is a 58 y/o male presenting to [facility] from radiation clinic c/o abd pain and nausea. Pt started radiation and oral chemotherapy for glioblastoma 5 weeks ago. He describes abd pain mostly in the upper abdomen area , constant burning pain "like heart burn," that does not radiate. Additionally states nausea has worsened, notes "I have nausea all the time but now nothing smells good, nothing looks good, everything just causes nausea." He also reports headache, rating it 2 or 3 out of 10, runny nose, sinus pain. Denies fever, chills, cough, chest pain, SOB. He has chronic constipation for which he takes laxative. Pt reports that for the last 2 days he has had regular bowel movements. Pt is followed up by Dr. Mandujano and Dr. Aguilera at [facility]. He has had tumor removal in March by Dr. Jeffrey in [place]. Head CT impression: Stable treatment related changes. No acute intracranial pathology. Abdominal pelvic CT impression: No acute abdominal pelvic pathology gastrointestinal or other pathologic process evident. No CT evidence of abdominal pelvic metastatic disease. In the ED course the patient was started with IV fluids, Zofran 8 mg IV for the nausea and vomiting. After these medications the patient reports that he is feeling better. Patients headache has resolved, however the patient still has some epigastric discomfort. Therefore the patient was given Protonix and a GI cocktail. After these medications the patients symptoms have significantly improved. The patient is feeling better. I discussed the case with Dr. Cruz who is covering for Dr. Mandujano and he recommends for the patient to be discharged home with follow-up with Dr. Mandujano tomorrow. I discussed the findings and test results with the patient and he agrees also with the plan. He was also given instructions to return to the emergency department if he develops any fevers, worsening headache, worsening abdominal pain. The patient understands and agrees. Patient is hemodynamically stable, alert and oriented 3. - Diagnoses Provider Diagnoses: Headache, Upper abdominal pain - Provider Notifications Discussed Care Of Patient With: Jorge Cruz Time Discussed With Above Provider: 14:24 Instructed by Provider To: Other - I discussed pt care with Dr. Cruz, oncologist, who recommeds to discharge the pt home. Discharge - Sign-Out/Discharge Documenting (check all that apply): Patient Departure - Discharge home - Discharge Plan Condition: Stable Disposition: HOME Patient Education Materials: Abdominal Pain (ED), General Headache (ED) Referrals: Clair Pederson MD [Primary Care Provider] - Additional Instructions: FOLLOW UP WITH YOUR PRIMARY CARE PROVIDER WITHIN ONE WEEK FOR HIGH BLOOD PRESSURE NOTED TODAY. RETURN TO THE ED FOR ANY NEW OR WORSENING SYMPTOMS. - Billing Disposition and Condition Condition: STABLE Disposition: Home - Attestation Statements Document Initiated by Laya: Yes Documenting Scribe: Noemy Adhikari Provider For Whom Laya is Documenting (Include Credential): Max Mondragon MD Scribe Attestation: Noemy Reeves scribed for Max Mondragon MD on 05/12/18 at 0738. Scribe Documentation Reviewed: Yes Provider Attestation: The documentation as recorded by the Noemy munroe accurately reflects the service I personally performed and the decisions made by me, Max Mondragon MD
[2018-05-11 10:56] LABS: ABS Basophils 0 10^3/ul (0-0.2); ABS Eosinophils 0 10^3/ul (0-0.6); ABS Lymphocytes 0.6 10^3/ul (1.0-4.8); ABS Monocytes 0.5 10^3/ul (0-0.8); ABS Neutrophils 4.5 10^3/ul (1.5-7.7); ABS Nucleated RBC 0 10^3/ul; Eosinophil % 0 % (0-6); Hematocrit 41 % (42-52); Hemoglobin 13.9 g/dl (14.0-18.0); Lymphocyte % 10.1 % (25-47); Mean Corpuscular HGB Conc 34 g/dl (31-36); Mean Corpuscular Hemoglobin 31 pg (27-31); Mean Corpuscular Volume 89 fL (80-94); Mean Platelet Volume 7.1 um3 (7.4-10.4); Nucleated Red Blood Cells % 0.1; Platelet Count 204 10^3/ul (150-450); Red Blood Count 4.56 10^6/ul (4.00-5.40); Red Cell Distribution Width 13 % (10.5-15); White Blood Count 5.5 10^3/ul (3.5-10.8)
[2018-05-11 11:08] LABS: INR 0.97 (0.77-1.02)
[2018-05-11 11:36] LABS: EGFR Non-African American 92.6 (>60)
[2018-05-11 11:56] LABS: Urine Appearance Clear; Urine Blood Negative (Negative); Urine Color Straw; Urine Ketones Negative (Negative); Urine Protein Negative (Negative); Urine Specific Gravity 1.005 (1.010-1.030); Urine Urobilinogen Negative (Negative)
[2018-05-11] MEDS ORDERED: Iohexol 300* (CONTRAST) 10 ML SDV IV ONE (12:22)
--- NOTE | 2018-05-11 12:50 | RAD ---
HISTORY: Headache COMPARISONS: March 19, 2018 , March 14, 2018 TECHNIQUE: Multiple contiguous axial CT scans were obtained of the head without intravenous contrast. FINDINGS: HEMORRHAGE/INFARCT: There is no hemorrhage or acute infarct. MASSES/SHIFT: There is no mass or shift. EXTRA-AXIAL SPACES: There are no extra-axial fluid collections. SULCI AND VENTRICLES: The sulci and ventricles are normal in size and position for the patient's stated age. CEREBRUM: There is post surgical change to the right temporal lobe with hypoattenuation of the subcortical white matter of the right parietal lobe, stable from the March 19, 2018 examination. BRAINSTEM: There are no focal parenchymal abnormalities. CEREBELLUM: There are no focal parenchymal abnormalities. VESSELS: The vessels are grossly normal. PARANASAL SINUSES: The paranasal sinuses are clear. ORBITS: The orbits are unremarkable. BONES AND SOFT TISSUE: There is post surgical change to the right temporal skull.. OTHER: None IMPRESSION: STABLE TREATMENT RELATED CHANGES. NO ACUTE INTRACRANIAL PATHOLOGY
--- NOTE | 2018-05-11 13:03 | RAD ---
INDICATION: Brain cancer undergoing radiation therapy. Lethargy, nausea, abdominal pain. COMPARISON: March 13, 2018 CT TECHNIQUE: Multidetector CT images were obtained from the lung bases to the ischial tuberosities with 100 mL Omnipaque 300 IV and oral contrast. Multiplanar reformation. REPORT: VISUALIZED INFERIOR THORAX: Minimal basilar dependent atelectasis. LIVER / GALLBLADDER / PANCREAS / SPLEEN: Unremarkable liver, normally distended gallbladder, pancreas, spleen. ALIMENTARY TRACT: No CT abnormality of the upper GI or small bowel. The appendix is not visualized. Negative for RIGHT lower quadrant inflammatory change. Probable few diverticula of the sigmoid colon without findings of acute diverticulitis. Negative for ascites, free air, or significant hernias. MESENTERIC: Unremarkable. ADRENAL / GENITOURINARY: Normal adrenal glands. Unremarkable kidneys with symmetric nephrograms and pyelograms. Small unchanged cortical cyst at the upper pole of the LEFT kidney. Unremarkable nondilated ureters and moderately distended urinary bladder. Coarse calcifications at the prostate. Symmetric seminal vesicles. RETROPERITONEAL: Negative for lymphadenopathy. VASCULAR: Normal diameter abdominal aorta. Physiologic partial distention of the IVC. BONES: Typical indolent subchondral cysts at the bilateral femoral necks. A few small sclerotic foci most consistent with bone islands are noted at the pelvis without change. Negative for suspicious focal osseous lesions. Grade 1 degenerative L5-S1 anterolisthesis without change. SOFT TISSUE: Unremarkable. IMPRESSION: #. No acute abdominal pelvic pathologic gastrointestinal or other pathologic process evident. #. No CT evidence for abdominal pelvic metastatic disease.
[2018-05-11] MEDS ORDERED: Pantoprazole IV* 40 MG IV ONE (13:09)
[2018-05-11] MEDS ORDERED: Al Hydrox/Mg Hydrox/Simet LIQ* 30 ML UDC PO ONE (13:11)
[2018-05-11] MEDS ORDERED: Lidocaine 2% VISCOUS* 15 ML UDC PO ONE (13:11)
[2018-05-11 14:34] VITALS: BP 123/77
== END 2018-05-11 14:41 | disposition home or self-care (01) ==
LOC: ED 09:52
DX: R51 Headache (principal); R10.10 Upper abdominal pain, unspecified; R11.0 Nausea; Z92.21 Personal history of antineoplastic chemotherapy
CPT/HCPCS: 36415; 70450; 74177; 80053; 81003; 82140; 83605; 83690; 83735; 83880; 84484; 85025; 85610; 85730; 86140; 87040; 93005; 96361; 96374; 96375; 99283; A9270-GY; J2405; Q9967

== ENCOUNTER 2019-11-28 00:48 | Emergency (ER) | payer BC ==
[2019-11-28 01:28] LABS: ABS Eosinophils 0.1 10^3/ul (0-0.6); ABS Lymphocytes 0.6 10^3/ul (1.0-4.8); ABS Monocytes 0.2 10^3/ul (0-0.8); Eosinophil % 1.8 %; Hematocrit 42 % (42-52); Hemoglobin 14.9 g/dL (14.0-18.0); Lymphocyte % 18.4 %; Mean Corpuscular HGB Conc 35 g/dL (31-36); Mean Corpuscular Hemoglobin 33 pg (27-31); Mean Corpuscular Volume 95 fL (80-94); Mean Platelet Volume 6.3 fL (7.4-10.4); Nucleated Red Blood Cells % 0.1; Platelet Count 165 10^3/uL (150-450); Red Blood Count 4.49 10^6 /uL (4.18-5.48); Red Cell Distribution Width 13 % (10-15); White Blood Count 3.3 10^3/uL (3.5-10.8)
[2019-11-28 01:43] LABS: INR 0.99 (0.82-1.09)
[2019-11-28 01:44] LABS: Albumin 4.4 g/dL (3.2-5.2); Albumin/Globulin Ratio 2.3 (1-3); BUN/Creatinine Ratio 17.6 (8-20); Calcium 8.8 mg/dL (8.6-10.3); EGFR Non-African American 108.3 (>60); Globulin 1.9 g/dL (2-4); Potassium 3.4 mmol/L (3.5-5.0); Total Bilirubin 0.5 mg/dL (0.2-1.0); Total Protein 6.3 g/dL (6.4-8.9)
[2019-11-28 05:15] VITALS: BP 132/79
== END 2019-11-28 05:10 | disposition home or self-care (01) ==
LOC: ED 00:48